=== PATIENT | male | born 1980 | race Caucasian/White ===

== ENCOUNTER 2017-08-29 20:39 | Emergency (ER) | payer OTHER ==
[2017-08-29 21:32] LABS: BASOPHIL % 0.5 % (0-2); PLATELET COUNT 265 x10^3mcL (130-400); RED CELL DISTRIBUTION WIDTH 13.8 % (11.5-14.5)
[2017-08-29 21:35] LABS: CALCIUM 8.7 mg/dL (8.5-10.1); CARBON DIOXIDE 28.9 mmol/L (21-32); CHLORIDE SERUM 101 mmol/L (98-107); CREATININE SERUM 0.9 mg/dL (0.7-1.3); GFR1 > 60 mL/min; GLUCOSE SERUM 159 mg/dL (74-106); POTASSIUM SERUM 3.8 mmol/L (3.5-5.1); SODIUM SERUM 138 mmol/L (136-145)
[2017-08-29 21:39] LABS: ALBUMIN 3.3 g/dL (3.4-5.0); ALKALINE PHOSPHATASE 95 U/L (46-116); ALT/SGPT 45 U/L (16-63); AST/SGOT 17 U/L (15-37); BILIRUBIN TOTAL 0.9 mg/dL (0.20-1.00); TOTAL PROTEIN, SERUM 7.6 g/dL (6.4-8.2)
[2017-08-29 22:41] VITALS: BP 177/115
[2017-08-30 00:09] LABS: AMPHETAMINE QUAL UR NONE DETECTED (NEG <=1000)
== END 2017-08-29 22:41 | disposition short-term general hospital (02) ==
LOC: ED 20:39
PROVIDERS: Emergency Medicine
DX: I63.511 Cerebral infarction due to unspecified occlusion or stenosis of right middle cerebral artery (principal); R29.810 Facial weakness; R40.4 Transient alteration of awareness; I10 Essential (primary) hypertension; R29.709 NIHSS score 9; Z88.6 Allergy status to analgesic agent; E11.9 Type 2 diabetes mellitus without complications
CPT/HCPCS: 83880; J2405; J3490; Q0092

== ENCOUNTER 2018-06-17 12:53 | Emergency (ER) | payer SELFPAY ==
[~2018-06-17] VITALS: Ht 172.7 cm; Wt 123.8 kg
[2018-06-17 13:00] VITALS: Ht 172.7 cm; Wt 123.8 kg
[2018-06-17 14:40] VITALS: BP 172/112
== END 2018-06-17 14:40 | disposition home or self-care (01) ==
LOC: ED 12:53
DX: M25.532 Pain in left wrist (principal); M25.572 Pain in left ankle and joints of left foot; M54.5 Low back pain; W01.0XXA Fall on same level from slipping, tripping and stumbling without subsequent striking against object, initial encounter; Y93.89 Activity, other specified; Y92.89 Other specified places as the place of occurrence of the external cause; Y99.8 Other external cause status

== ENCOUNTER 2020-11-15 12:53 | Inpatient (IN) | payer BC, SELFPAY ==
[~2020-11-15] VITALS: Ht 170.2 cm; Wt 102.5 kg
[2020-11-15 12:55] VITALS: Ht 170.2 cm; Wt 102.5 kg
[2020-11-15 14:53] LABS: BASOPHIL % 0.4 % (0.2-1.5); PLATELET COUNT 231 x10^3mcL (152-348); RED CELL DISTRIBUTION WIDTH 13.3 % (12.1-16.2)
[2020-11-15 15:52] LABS: CALCIUM 8.8 mg/dL (8.5-10.1); CARBON DIOXIDE 28.4 mmol/L (21-32); CHLORIDE SERUM 99 mmol/L (98-107); GFR1 > 60 mL/min; GLUCOSE SERUM 176 mg/dL (74-106); POTASSIUM SERUM 3.7 mmol/L (3.5-5.1); SODIUM SERUM 136 mmol/L (136-145)
[2020-11-15 15:59] LABS: ALBUMIN 3.4 g/dL (3.4-5.0); ALKALINE PHOSPHATASE 93 U/L (46-116); ALT/SGPT 48 U/L (16-63); AST/SGOT 18 U/L (15-37); BILIRUBIN TOTAL 1.19 mg/dL (0.20-1.00); CHOLESTEROL 196 mg/dL (<200); HDL CHOLESTEROL 40 mg/dL (40-60); LIPASE 197 IU/L (73-393); MAGNESIUM 1.9 mg/dL (1.8-2.4); TOTAL PROTEIN, SERUM 7.6 g/dL (6.4-8.2)
[2020-11-15 18:19] LABS: T3 TOTAL 1.26 ng/mL
[2020-11-15 18:59] LABS: CHOLESTEROL/HDL RATIO 4.8
[2020-11-15] MEDS ORDERED: TOPROL XL25 MG PO (20:32)
[2020-11-15] MEDS ORDERED: FORTAMET500 M1 PO (20:32)
[2020-11-15] MEDS ORDERED: GLIPIZIDE XL10 M1 PO (20:33)
[2020-11-15] MEDS ORDERED: ATORVASTATIN CA40 M1 PO (20:33)
[2020-11-15] MEDS ORDERED: LOSARTAN POTASS1 TA6 PO (20:33)
[2020-11-15 23:21] LABS: FREE T4 1.01 ng/dL (0.76-1.46); FREE THYROXINE INDEX 2.5 ug/dL (1.4-4.5); T4(THYROXINE) 6.8 ug/dL (4.7-13.3)
[2020-11-16 10:22] LABS: microscopic required? NO
[2020-11-16 12:10] VITALS: BP 186/109
[2020-11-16 15:07] LABS: BASOPHIL % 0.2 % (0.2-1.5); PLATELET COUNT 233 x10^3mcL (152-348); RED CELL DISTRIBUTION WIDTH 13.5 % (12.1-16.2)
[2020-11-16 15:15] LABS: CALCIUM 9.2 mg/dL (8.5-10.1); CARBON DIOXIDE 25.8 mmol/L (21-32); CHLORIDE SERUM 100 mmol/L (98-107); CREATININE SERUM 0.8 mg/dL (0.7-1.3); GFR1 > 60 mL/min; GLUCOSE SERUM 259 mg/dL (74-106); POTASSIUM SERUM 4.1 mmol/L (3.5-5.1); SODIUM SERUM 136 mmol/L (136-145)
[2020-11-16] MEDS ORDERED: VENTOLIN H0.09 MG/A1 INH (16:26)
[2020-11-16] MEDS ORDERED: CLOPIDOGREL75 M1 PO (16:29)
[2020-11-16] MEDS ORDERED: LIPITOR80 MG PO (16:30)
[2020-11-16] MEDS ORDERED: MUCINEX600 MG PO (16:31)
[2020-11-16] MEDS ORDERED: DEC4I PO (16:32)
[2020-11-16] MEDS ORDERED: XARELTO10 M1 PO (16:33)
[2020-11-16] MEDS ORDERED: TYLENOL ARTHRI650 MG PO (16:39)
[2020-11-16 16:58] VITALS: BP 164/98
[2020-11-16 18:09] VITALS: BP 164/98
== END 2020-11-16 18:49 | disposition home or self-care (01) | DRG 179 ==
LOC: ED 12:53 → DU 16:17
PROVIDERS: Emergency Medicine; ADMIT Internal Medicine; ATTEND Internal Medicine
DX: U07.1 COVID-19 (principal); I10 Essential (primary) hypertension; E11.9 Type 2 diabetes mellitus without complications; Z86.73 Personal history of transient ischemic attack (TIA), and cerebral infarction without residual deficits; F17.200 Nicotine dependence, unspecified, uncomplicated; E78.5 Hyperlipidemia, unspecified
CPT/HCPCS: 36600; 82962; 83880; 84439; 85378; 87804; 99406; G0378; J1100; J1650; J3490; J3535; U0003